=== PATIENT | female | born 1955 | race African-American/Black ===

== ENCOUNTER 2016-10-12 06:00 | Emergency (ER) | payer MEDICARE, MEDICAID ==
[~2016-10-12] VITALS: Ht 157.5 cm; Wt 63.0 kg
[2016-10-12] MEDS ORDERED: KETOROLAC 60MG/2ML VIAL IM ONE (07:00)
[2016-10-12] MEDS ORDERED: HYDROCODONE/ACETAMINOPHEN 5/325MG TABLET PO ONE (07:30)
[2016-10-12 09:06] VITALS: BP 154/75
== END 2016-10-12 09:06 | disposition home or self-care (01) ==
LOC: ER 06:11
DX: S39.012A Strain of muscle, fascia and tendon of lower back, initial encounter (principal); M79.644 Pain in right finger(s); X50.0XXA Overexertion from strenuous movement or load, initial encounter; Y93.E6 Activity, residential relocation; Y92.098 Other place in other non-institutional residence as the place of occurrence of the external cause; Z88.0 Allergy status to penicillin; Z88.2 Allergy status to sulfonamides; Z88.3 Allergy status to other anti-infective agents; Z88.1 Allergy status to other antibiotic agents; Z88.6 Allergy status to analgesic agent
CPT/HCPCS: 29130; 73140; 99284